=== PATIENT | male | born 1930 | race Caucasian/White ===

== ENCOUNTER 2018-04-20 09:50 | Inpatient (IN) | payer MEDICARE, OTHER ==
[~2018-04-20] VITALS: Ht 172.7 cm; Wt 96.7 kg
[2018-04-20 10:44] LABS: BASOPHILS # (AUTO) 0.1 X10'3 (0-0.2); BASOPHILS % (AUTO) 0.9 % (0-1); EOSINOPHILS # (AUTO) 0.1 X10'3 (0-0.9); EOSINOPHILS % (AUTO) 1.3 % (0-6); HEMATOCRIT 43.7 % (42.0-52.0); HEMOGLOBIN 14.4 g/dl (14.0-17.9); LYMPHOCYTES # (AUTO) 1.9 X10'3 (1.1-4.8); MEAN CORPUSCULAR HEMOGLOBIN 32.4 PG (27.0-31.0); MEAN CORPUSCULAR HGB CONC 32.9 % (33.0-36.5); MEAN CORPUSCULAR VOLUME 98.5 FL (78-98); MEAN PLATELET VOLUME 7.8 FL (7.4-10.4); MONOCYTES # (AUTO) 0.9 X10'3 (0-0.9); MONOCYTES % (AUTO) 8.2 % (2-12); NEUTROPHILS # (AUTO) 7.4 X10'3 (1.8-7.7); NEUTROPHILS % (AUTO) 71.6 % (42-75); PLATELET COUNT 382 X10'3 (140-440); RED BLOOD COUNT 4.44 X10'6 (4.70-6.10); RED CELL DISTRIBUTION WIDTH 14.3 % (11.5-14.5); WHITE BLOOD COUNT 10.4 X10'3 (4.5-11.0)
[2018-04-20 10:52] LABS: ALANINE AMINOTRANSFERASE 26 U/L (12-78); ALBUMIN 2.6 G/DL (3.4-5.0); ALBUMIN/GLOBULIN RATIO 0.5 (1.1-1.5); ANION GAP 7 (8-16); ASPARTATE AMINO TRANSFERASE 23 U/L (10-37); BILIRUBIN,TOTAL 0.4 MG/DL (0.1-1.0); BLOOD UREA NITROGEN 35 MG/DL (7-18); BUN/CREATININE RATIO 18.9 (5.4-32.0); CALCIUM 8.9 MG/DL (8.5-10.1); CHLORIDE 102 MMOL/L (99-107); CREATININE 1.85 MG/DL (0.60-1.10); GLUCOSE 104 MG/DL (70-104); PARTIAL THROMBOPLASTIN TIME 35 SECONDS (22-32); POTASSIUM 4.3 MMOL/L (3.5-5.1); SODIUM 139 MMOL/L (135-145); TOTAL CARBON DIOXIDE 29.6 MMOL/L (24-32); TOTAL PROTEIN 7.9 G/DL (6.4-8.2); eGFR 35 ML/MIN
[2018-04-20 10:53] LABS: ALKALINE PHOSPHATASE 70 IU/L (46-116)
[2018-04-20] MEDS ORDERED: ipratropium 0.5 MG/2.5ML nebule IH ONE (11:00)
[2018-04-20] MEDS ORDERED: aspirin 81mg tab.chew PO ONE (11:00)
[2018-04-20] MEDS ORDERED: furosemide 40mg/4ml inj IV ONE (11:00)
[2018-04-20] MEDS ORDERED: albuterol 2.5 MG/3 ML nebule CONTNEB PRN (11:00)
[2018-04-20] MEDS ORDERED: furosemide 20 MG/2 ML vial IV ONE (11:00)
[2018-04-20] MEDS ORDERED: methylPREDNISolone sod succ 125mg/2ml vial IV ONE ×2 (11:00→20:00)
[2018-04-20] MEDS ORDERED: ALBU8.5H8 IH (11:01)
[2018-04-20] MEDS ORDERED: LORA0.5T PO (11:01)
[2018-04-20] MEDS ORDERED: AMLO-93 PO (11:01)
[2018-04-20] MEDS ORDERED: FLUT16SP10 NAS (11:01)
[2018-04-20] MEDS ORDERED: nitroGLYCERIN 0.4mg/hour patch TD ONE (11:10)
[2018-04-20] MEDS ORDERED: potassium Cl 20 mEq SR tablet PO PRN ×2 (11:20)
[2018-04-20] MEDS ORDERED: acetaminophen 325mg tablet PO PRN (11:20)
[2018-04-20] MEDS ORDERED: magnesium 1gm/100ml D5W IVPB 100 ML IV PRN (11:20)
[2018-04-20] MEDS ORDERED: magnesium 4gm in 100ml NS 100 ML IV PRN (11:20)
[2018-04-20] MEDS ORDERED: ondansetron/PF 4mg/2ml inj IV PRN (11:20)
[2018-04-20] MEDS ORDERED: potassium Cl 40MEQ/NS 500ml 500 ML IV PRN ×2 (11:20)
[2018-04-20] MEDS ORDERED: magnesium Cl slow-release 64mg tablet PO PRN (11:20)
[2018-04-20 12:20] VITALS: BP 148/90
[2018-04-20] MEDS ORDERED: AMLO5TAB4 PO (14:41)
[2018-04-20 18:00] VITALS: BP 128/76
[2018-04-20] MEDS: carVEDilol 3.125mg tablet PO SCH ×2 (20:00→20:28)
[2018-04-20] MEDS: furosemide 40mg/4ml inj IV SCH ×2 (20:00→20:27)
[2018-04-20] MEDS: heparin, porcine 5000 units/ml vial SQ SCH (20:29)
[2018-04-21] VITALS: BP 105/61
[2018-04-21 04:53] LABS: BASOPHILS % (AUTO) 0 % (0-1); EOSINOPHILS % (AUTO) 0 % (0-6); HEMATOCRIT 40.6 % (42.0-52.0); HEMOGLOBIN 13.3 g/dl (14.0-17.9); LYMPHOCYTES # (AUTO) 0.8 X10'3 (1.1-4.8); LYMPHOCYTES % (AUTO) 7.4 % (21-51); MEAN CORPUSCULAR HEMOGLOBIN 32.2 PG (27.0-31.0); MEAN CORPUSCULAR HGB CONC 32.7 % (33.0-36.5); MEAN CORPUSCULAR VOLUME 98.5 FL (78-98); MEAN PLATELET VOLUME 7.7 FL (7.4-10.4); MONOCYTES # (AUTO) 0.1 X10'3 (0-0.9); MONOCYTES % (AUTO) 0.7 % (2-12); NEUTROPHILS # (AUTO) 9.5 X10'3 (1.8-7.7); NEUTROPHILS % (AUTO) 91.9 % (42-75); PLATELET COUNT 383 X10'3 (140-440); RED BLOOD COUNT 4.13 X10'6 (4.70-6.10); RED CELL DISTRIBUTION WIDTH 13.9 % (11.5-14.5); WHITE BLOOD COUNT 10.3 X10'3 (4.5-11.0)
[2018-04-21 05:11] LABS: ALBUMIN 2.3 G/DL (3.4-5.0); ANION GAP 7 (8-16); BLOOD UREA NITROGEN 49 MG/DL (7-18); BUN/CREATININE RATIO 19.3 (5.4-32.0); CALCIUM 8.7 MG/DL (8.5-10.1); CHLORIDE 102 MMOL/L (99-107); CHOLESTEROL 184 MG/DL (0-200); CREATININE 2.54 MG/DL (0.60-1.10); GLUCOSE 136 MG/DL (70-104); LDL CHOLESTEROL 120 MG/DL (50-100); MAGNESIUM 2.2 MG/DL (1.5-2.4); POTASSIUM 4.8 MMOL/L (3.5-5.1); SODIUM 139 MMOL/L (135-145); TOTAL CARBON DIOXIDE 30.2 MMOL/L (24-32); TRIGLYCERIDES 59 MG/DL (20-135); eGFR 24 ML/MIN
[2018-04-21 05:33] LABS: CHOL/HDL RATIO 3.4 (0.00-4.99); HDL CHOLESTEROL 54 MG/DL (35-60)
[2018-04-21 07:00] VITALS: BP 115/73
[2018-04-21] MEDS: carVEDilol 3.125mg tablet PO SCH ×2 (07:22→20:15)
[2018-04-21] MEDS: heparin, porcine 5000 units/ml vial SQ SCH ×2 (07:25→20:16)
[2018-04-21] MEDS: furosemide 40mg/4ml inj IV SCH ×2 (07:26→20:15)
[2018-04-21] MEDS: K and/or MAG REPLACEMENT MC SCH (08:00)
[2018-04-21] MEDS: albuterol 2.5 MG/3 ML nebule NEB PRN ×2 (08:53→21:47)
[2018-04-21 11:00] VITALS: BP 112/73
[2018-04-21] MEDS ORDERED: magnesium hydroxide 30ml (MOM) UD suspension PO PRN (11:45)
[2018-04-21] MEDS ORDERED: predniSONE 20 mg tablet PO ONE (14:20)
[2018-04-21 18:00] VITALS: BP 113/75
[2018-04-21] MEDS: docusate sod 100mg capsule PO SCH (20:00)
[2018-04-22] VITALS: BP 130/72
[2018-04-22 05:25] LABS: ALBUMIN 2.6 G/DL (3.4-5.0); ANION GAP 6 (8-16); BASOPHILS % (AUTO) 0.3 % (0-1); BLOOD UREA NITROGEN 72 MG/DL (7-18); BUN/CREATININE RATIO 24.5 (5.4-32.0); CALCIUM 9.1 MG/DL (8.5-10.1); CHLORIDE 101 MMOL/L (99-107); CREATININE 2.94 MG/DL (0.60-1.10); EOSINOPHILS # (AUTO) 0.1 X10'3 (0-0.9); EOSINOPHILS % (AUTO) 0.4 % (0-6); GLUCOSE 124 MG/DL (70-104); HEMATOCRIT 41.4 % (42.0-52.0); HEMOGLOBIN 13.7 g/dl (14.0-17.9); LYMPHOCYTES # (AUTO) 1.2 X10'3 (1.1-4.8); LYMPHOCYTES % (AUTO) 9.1 % (21-51); MAGNESIUM 2.3 MG/DL (1.5-2.4); MEAN CORPUSCULAR HEMOGLOBIN 32.4 PG (27.0-31.0); MEAN CORPUSCULAR HGB CONC 33.1 % (33.0-36.5); MEAN CORPUSCULAR VOLUME 98.1 FL (78-98); MONOCYTES # (AUTO) 0.5 X10'3 (0-0.9); MONOCYTES % (AUTO) 3.5 % (2-12); NEUTROPHILS # (AUTO) 11.6 X10'3 (1.8-7.7); NEUTROPHILS % (AUTO) 86.7 % (42-75); PLATELET COUNT 400 X10'3 (140-440); RED BLOOD COUNT 4.22 X10'6 (4.70-6.10); SODIUM 139 MMOL/L (135-145); TOTAL CARBON DIOXIDE 31.7 MMOL/L (24-32); WHITE BLOOD COUNT 13.3 X10'3 (4.5-11.0); eGFR 20 ML/MIN
[2018-04-22 05:27] LABS: POTASSIUM 4.4 MMOL/L (3.5-5.1)
[2018-04-22] MEDS: furosemide 40mg/4ml inj IV SCH ×2 (07:47→20:17)
[2018-04-22] MEDS: heparin, porcine 5000 units/ml vial SQ SCH ×2 (07:47→20:14)
[2018-04-22] MEDS: predniSONE 20 mg tablet PO SCH (07:47)
[2018-04-22] MEDS: docusate sod 100mg capsule PO SCH ×2 (07:48→20:16)
[2018-04-22] MEDS: K and/or MAG REPLACEMENT MC SCH (08:00)
[2018-04-22] MEDS: carVEDilol 3.125mg tablet PO SCH ×2 (08:00→20:15)
[2018-04-22 08:10] VITALS: BP 98/62
[2018-04-22 11:00] VITALS: BP 100/67
[2018-04-22 19:00] VITALS: BP 111/59
[2018-04-23] VITALS: BP 111/72
[2018-04-23 05:42] LABS: BASOPHILS # (AUTO) 0.1 X10'3 (0-0.2); EOSINOPHILS % (AUTO) 0.4 % (0-6); HEMATOCRIT 39.5 % (42.0-52.0); HEMOGLOBIN 13.1 g/dl (14.0-17.9); LYMPHOCYTES # (AUTO) 2.8 X10'3 (1.1-4.8); LYMPHOCYTES % (AUTO) 25.2 % (21-51); MEAN CORPUSCULAR HEMOGLOBIN 32.5 PG (27.0-31.0); MEAN CORPUSCULAR HGB CONC 33.1 % (33.0-36.5); MEAN CORPUSCULAR VOLUME 98.5 FL (78-98); MEAN PLATELET VOLUME 8.1 FL (7.4-10.4); MONOCYTES # (AUTO) 0.9 X10'3 (0-0.9); MONOCYTES % (AUTO) 8.2 % (2-12); NEUTROPHILS # (AUTO) 7.2 X10'3 (1.8-7.7); NEUTROPHILS % (AUTO) 65.2 % (42-75); PLATELET COUNT 389 X10'3 (140-440); RED BLOOD COUNT 4.01 X10'6 (4.70-6.10); RED CELL DISTRIBUTION WIDTH 14.1 % (11.5-14.5)
[2018-04-23 06:17] LABS: ALBUMIN 2.4 G/DL (3.4-5.0); ANION GAP 4 (8-16); BLOOD UREA NITROGEN 72 MG/DL (7-18); BUN/CREATININE RATIO 29.3 (5.4-32.0); CALCIUM 9.1 MG/DL (8.5-10.1); CHLORIDE 103 MMOL/L (99-107); CREATININE 2.46 MG/DL (0.60-1.10); GLUCOSE 82 MG/DL (70-104); MAGNESIUM 2.5 MG/DL (1.5-2.4); POTASSIUM 4.2 MMOL/L (3.5-5.1); SODIUM 142 MMOL/L (135-145); TOTAL CARBON DIOXIDE 35.2 MMOL/L (24-32); eGFR 25 ML/MIN
[2018-04-23] MEDS: K and/or MAG REPLACEMENT MC SCH (06:32)
[2018-04-23 07:00] VITALS: BP 103/71
[2018-04-23] MEDS: docusate sod 100mg capsule PO SCH (07:05)
[2018-04-23] MEDS: carVEDilol 3.125mg tablet PO SCH (07:05)
[2018-04-23] MEDS: furosemide 40mg/4ml inj IV SCH (07:05)
[2018-04-23] MEDS: heparin, porcine 5000 units/ml vial SQ SCH (07:06)
[2018-04-23] MEDS: predniSONE 20 mg tablet PO SCH (07:07)
[2018-04-23 11:22] VITALS: BP 105/67
[2018-04-23] MEDS ORDERED: POTA20TA19 PO (12:21)
[2018-04-23] MEDS ORDERED: FURO-149 PO (12:21)
[2018-04-23] MEDS ORDERED: CARV3.12 PO (12:21)
[2018-04-23] MEDS ORDERED: PRED20TA PO (12:21)
[2018-04-23] MEDS ORDERED: LISI2.5T2 PO (12:21)
== END 2018-04-23 14:05 | disposition home health service (06) | DRG 291 ==
LOC: ER 09:50 → ED HOLD 11:15 → SUR 3N 12:11
PROVIDERS: ADMIT Internal Medicine; ATTEND Internal Medicine
PROC: 5A09357 Assistance with Respiratory Ventilation, Less than 24 Consecutive Hours, Continuous Positive Airway Pressure (ICD-10-PCS; principal; 2018-04-21)
PROC: 5A09357 Assistance with Respiratory Ventilation, Less than 24 Consecutive Hours, Continuous Positive Airway Pressure (ICD-10-PCS; 2018-04-22)
PROC: 5A09357 Assistance with Respiratory Ventilation, Less than 24 Consecutive Hours, Continuous Positive Airway Pressure (ICD-10-PCS; 2018-04-23)
DX: I13.0 Hypertensive heart and chronic kidney disease with heart failure and stage 1 through stage 4 chronic kidney disease, or unspecified chronic kidney disease (principal); I50.21 Acute systolic (congestive) heart failure; J44.1 Chronic obstructive pulmonary disease with (acute) exacerbation; I24.9 Acute ischemic heart disease, unspecified; F17.210 Nicotine dependence, cigarettes, uncomplicated; G47.30 Sleep apnea, unspecified; N18.9 Chronic kidney disease, unspecified; Z66 Do not resuscitate
CPT/HCPCS: 36415; 71045; 80048; 80053; 80061; 83735; 83880; 84484; 85025; 85610; 85730; 87070; 93005; 94640; 94667; 94668; 94760; G0378; J1644; J1940; J2930; J7512